=== PATIENT | male | born 2005 | race African-American/Black ===

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

== ENCOUNTER 2025-01-13 13:40 | Emergency (ER) | payer OTHER, MEDICAID ==
[~2025-01-13] VITALS: Ht 175.3 cm; Wt 59.0 kg
[2025-01-13 13:58] VITALS: BP 133/64; PULSE 87; RESP 16; TEMP 98.4; O2SAT 99
== END 2025-01-13 17:41 | disposition home or self-care (01) ==
LOC: EMS 13:40
DX: R07.89 Other chest pain (principal); Z88.6 Allergy status to analgesic agent; V43.52XA Car driver injured in collision with other type car in traffic accident, initial encounter; Y93.89 Activity, other specified; Y92.410 Unspecified street and highway as the place of occurrence of the external cause; Y99.8 Other external cause status
CPT/HCPCS: 71046; 99283